=== PATIENT | female | born 1940 | race Caucasian/White ===

== ENCOUNTER 2017-07-14 09:33 | Emergency (ER) | payer MEDICARE, BC ==
[2017-07-19 11:11] VITALS: BMI 28.8
== END 2017-07-14 12:25 | disposition home or self-care (01) ==
LOC: D.ER 09:33
DX: S06.0X0A Concussion without loss of consciousness, initial encounter (principal); W01.0XXA Fall on same level from slipping, tripping and stumbling without subsequent striking against object, initial encounter; Y93.89 Activity, other specified; Y92.019 Unspecified place in single-family (private) house as the place of occurrence of the external cause; S62.307A Unspecified fracture of fifth metacarpal bone, left hand, initial encounter for closed fracture; I10 Essential (primary) hypertension; E11.9 Type 2 diabetes mellitus without complications

== ENCOUNTER 2017-07-16 05:42 | Inpatient (IN) | payer MEDICARE, BC ==
[~2017-07-16] VITALS: Ht 172.7 cm; Wt 86.4 kg
[2017-07-16] MEDS ORDERED: ASPIRIN81 MG PO (09:47)
[2017-07-16] MEDS ORDERED: CRESTOR10 MG PO (09:47)
[2017-07-16] MEDS ORDERED: VASOTEC20 MG PO (09:48)
[2017-07-16] MEDS ORDERED: GLUCOPHAGE1000 MG PO (09:48)
[2017-07-16] MEDS ORDERED: HYDROCHLOROTHIA50 MG PO (09:49)
[2017-07-16] MEDS ORDERED: ZYLOPRIM100 MG PO (09:49)
[2017-07-16] MEDS ORDERED: GLIMEPIRIDE2 MG PO (09:50)
[2017-07-16] MEDS ORDERED: JANUVIA50 MG PO (09:51)
[2017-07-19 11:11] VITALS: Ht 172.7 cm; Wt 86.4 kg
[2017-07-21 14:54] VITALS: BP 143/73
== END 2017-07-21 16:11 | DRG 149 ==
LOC: D.ER 05:42 → OBSVTIME 07:34 → D.M2 07:34
PROVIDERS: ADMIT Family Medicine
DX: H81.10 Benign paroxysmal vertigo, unspecified ear (principal); S06.0X9A Concussion with loss of consciousness of unspecified duration, initial encounter; W01.0XXA Fall on same level from slipping, tripping and stumbling without subsequent striking against object, initial encounter; I10 Essential (primary) hypertension; E78.5 Hyperlipidemia, unspecified; E11.9 Type 2 diabetes mellitus without complications; E83.42 Hypomagnesemia; S62.307D Unspecified fracture of fifth metacarpal bone, left hand, subsequent encounter for fracture with routine healing